=== PATIENT | male | born 1960 | race Caucasian/White ===

== ENCOUNTER 2019-03-09 14:01 | Emergency (ER) | payer OTHER ==
[~2019-03-09] VITALS: Ht 175.3 cm; Wt 81.6 kg
[2019-03-09 14:09] VITALS: BP 180/86
--- NOTE | 2019-03-09 14:22 | NUR ---
Handed [address] Riley. Addendum: 03/09/19 at 1434 by BLANCA Made aware of patient status.
--- NOTE | 2019-03-09 14:32 | NUR ---
PT TAKEN TO BED 7.
--- NOTE | 2019-03-09 14:45 | NUR ---
59M bib daughter c/o dizzy, generalized weak, low energy x couple of days. States nausea. No fever. Pt states having left lower toothache for one week, had an appointment with dentist today, since pt looks pale, daughter decided to bring him to the ER. No unilateral symptoms at this time. PATIENT STATES toothache OF 5/10 AT THIS TIME; VSS; PATIENT POSITIONED FOR COMFORT; HOB ELEVATED; BEDRAILS UP X1; BED DOWN. ER MD MADE AWARE OF PT STATUS. Daughter is at bedside.
[2019-03-09] MEDS ORDERED: MECLIZINE 25 MG TAB PO ONE (15:05)
[2019-03-09] MEDS ORDERED: NACL 0.9% 1,000 ML IV ONE (15:05)
--- NOTE | 2019-03-09 15:13 | NUR ---
PT WAS TAKEN TO CT SCAN VIA WHEELCHAIR ASSISTED BY HUMAN FACTORS ENGINEER.
[2019-03-09 15:52] LABS: BASOPHILS % (AUTO) 0.2 % (0.0-2.0); EOSINOPHILS % (AUTO) 0.4 % (0.0-4.0); HEMATOCRIT 38.4 % (36-52); HEMOGLOBIN 12.7 g/dL (12.0-18.0); LYMPHOCYTES # (AUTO) 1.5 K/uL (2.0-11.5); LYMPHOCYTES % (AUTO) 13.4 % (20.5-51.1); MEAN CORPUSCULAR HEMOGLOBIN 28 pg (27-31); MEAN CORPUSCULAR HGB CONC 33 g/dL (33-37); MEAN CORPUSCULAR VOLUME 86.1 fL (80-94); MONOCYTES # (AUTO) 0.8 K/uL (0.8-1.0); MONOCYTES % (AUTO) 7.1 % (1.7-9.3); NEUTROPHILS # (AUTO) 8.8 K/uL (1.8-7.7); NEUTROPHILS % (AUTO) 78.9 % (42.2-75.2); PLATELET COUNT (AUTO) 279 K/uL (140-450); RED BLOOD CELL COUNT(AUTO) 4.46 MIL/uL (4.20-6.10); WHITE BLOOD COUNT (AUTO) 11.1 K/uL (4.8-10.8)
[2019-03-09 16:04] LABS: ANION GAP 14.4 (8-16); CARBON DIOXIDE 26.1 mmol/L (21-32); CREATININE 1.2 mg/dL (0.7-1.3); POTASSIUM 4.5 mmol/L (3.5-5.1)
[2019-03-09 16:09] LABS: ALBUMIN 3.2 g/dL (3.4-5.0); TOTAL BILIRUBIN 0.3 mg/dL (0.0-1.0)
[2019-03-09] MEDS ORDERED: INSULIN REGULAR, HUMAN 100 UNIT/ML VIAL IVP ONE (16:30)
--- NOTE | 2019-03-09 16:30 | NUR ---
PT IS RESTING IN BED WITH VSS. BP IS LOWERED BETTER AT THIS TIME.
[2019-03-09 17:23] VITALS: BP 196/85
--- NOTE | 2019-03-09 17:23 | NUR ---
Patient discharged with v/s stable. Written and verbal after care instructions given and explained. Patient alert, oriented and verbalized understanding of instructions. Ambulatory with steady gait. All questions addressed prior to discharge. ID band removed. Patient advised to follow up with PMD. Rx of Amoxicillin, Tramadol, and Meclizine given. Patient educated on indication of medication including possible reaction and side effects. Opportunity to ask questions provided and answered. Pt's BP is 196/85mmhg at this time. Dr. Segura notified.
== END 2019-03-09 17:31 | disposition home or self-care (01) ==
LOC: MED 14:01
DX: H81.10 Benign paroxysmal vertigo, unspecified ear (principal); K04.7 Periapical abscess without sinus; I10 Essential (primary) hypertension; E11.9 Type 2 diabetes mellitus without complications
CPT/HCPCS: 36415; 70450; 80053; 82948; 85025; 93005; 96361; 96374; 99284; J1815; J7030; J8597

== ENCOUNTER 2020-09-09 17:23 | Emergency (ER) | payer OTHER ==
[~2020-09-09] VITALS: Ht 175.3 cm; Wt 82.6 kg
[2020-09-09 17:26] VITALS: BP 216/100
[2020-09-09] MEDS ORDERED: CLONIDINE HYDROCHLORIDE 0.1 MG TAB PO ONE (17:40)
--- NOTE | 2020-09-09 17:53 | NUR ---
60 Y/O M BIB SELF FROM HOME, PATIENT PRESENTS TO ED WITH HIGH BP C/O, STATES HE TOOK BP AT HOME 207/107 AFTER TAKING BP MEDS (DOES NOT KNOW MEDICATION NAME), CALLED PRIMARY AND WAS TOLD TO COME TO ER . PT STATES HE FEELS DIZZY WHEN AMBULATING. DENIES N/V/D; SKIN IS PINK/WARM/DRY; AAOX4 WITH EVEN AND STEADY GAIT; LUNGS CLEAR BL; HR EVEN AND REGULAR; PT DENIES ANY FEVER, CP, SOB, OR COUGH AT THIS TIME; PATIENT STATES PAIN OF 0/10 AT THIS TIME; VSS; PATIENT POSITIONED FOR COMFORT; HOB ELEVATED; BEDRAILS UP X2; BED DOWN. ER MD MADE AWARE OF PT STATUS. GLU: 233 PMH: DM2, HTN NKA MED: BP MEDS
[2020-09-09 18:41] LABS: ANION GAP 8.2 (8-16); CARBON DIOXIDE 29.8 mmol/L (21-32); CREATININE 1.3 mg/dL (0.6-1.3)
[2020-09-09 18:57] VITALS: BP 176/85
--- NOTE | 2020-09-09 18:58 | NUR ---
Patient discharged with v/s stable. Written and verbal after care instructions given and explained. Patient verbalized understanding. Ambulatory with steady gait. All questions addressed prior to discharge. Advised to follow up with PMD.
== END 2020-09-09 18:58 | disposition home or self-care (01) ==
LOC: MED 17:23
DX: I16.0 Hypertensive urgency (principal); E11.9 Type 2 diabetes mellitus without complications
CPT/HCPCS: 36415; 80048; 81002; 93005; 99284

== ENCOUNTER 2021-04-08 14:22 | Emergency (ER) | payer OTHER ==
[~2021-04-08] VITALS: Ht 172.7 cm; Wt 86.2 kg
[2021-04-08 14:57] VITALS: BP 194/91
--- NOTE | 2021-04-08 15:03 | NUR ---
AMBULATED TO BED 7
--- NOTE | 2021-04-08 15:19 | NUR ---
Pt taken to radiology for xray
--- NOTE | 2021-04-08 15:21 | NUR ---
61/M BIB WITH C/O RIGHT SHOULDER PAIN SINCE WEDNESDAY. DENIES INJURY OR TRAUMA, STATES HE WOKE UP WITH THE PAIN AND HAS SINCE BEEN WORSENING. REPORTS TAKING IBUPROFEN WITH NO RELIEF. DENIES N/V/D, CP, SOB, FEVER OR CHILLS. BLOOD PRESSURE UPON ARRIVAL 194/91 STATES HE DID NOT TAKE HIS BP MEDS TODAY. MEDHX: HTN, DM ALLERGIES: DENIES
--- NOTE | 2021-04-08 15:49 | NUR ---
VASU CLEMENTS AT BEDSIDE TO CONSULT WITH PT
[2021-04-08] MEDS ORDERED: NAPR-1704 PO (15:53)
[2021-04-08] MEDS ORDERED: ACET-8386 PO (15:53)
[2021-04-08] MEDS ORDERED: LID5T TP (15:56)
[2021-04-08 16:25] VITALS: BP 178/93
--- NOTE | 2021-04-08 16:25 | NUR ---
Patient discharged with v/s stable. Written and verbal after care instructions ABOUT BICIPITAL TENDONITIS given and explained. Patient alert, oriented and verbalized understanding of instructions. Ambulatory with steady gait. All questions addressed prior to discharge. ID band removed. Patient advised to follow up with PMD. Rx of NORCO5 5-325, LIDODERM PATCH AND NAPROSYN given. Patient educated on indication of medication including possible reaction and side effects. EDUCATED ON USE OF NARCOTICS, ADVISED TO AVOID DRINKING OR DRIVING WHILE USING. Opportunity to ask questions provided and answered.
== END 2021-04-08 16:25 | disposition home or self-care (01) ==
LOC: MED 14:22
DX: M75.21 Bicipital tendinitis, right shoulder (principal); E11.9 Type 2 diabetes mellitus without complications; I10 Essential (primary) hypertension; Z79.899 Other long term (current) drug therapy
CPT/HCPCS: 73030; 99283